=== PATIENT | male | born 1980 | race Two or more races ===

== ENCOUNTER 2024-01-24 18:32 | Inpatient (IN) | payer OTHER ==
[~2024-01-24] VITALS: Ht 167.6 cm; Wt 72.7 kg
[2024-01-24 20:19] LABS: BASOPHILS % (AUTO) 0.4 % (0.0-2.0); EOSINOPHILS % (AUTO) 1.3 % (1.0-6.0); HEMATOCRIT 40.6 % (41-53); HEMOGLOBIN 13.4 g/dL (13.5-17.5); LYMPHOCYTES # (AUTO) 1.4 K/uL (1.0-4.8); MEAN CORPUSCULAR HEMOGLOBIN 28.5 pg (26.0-34.0); MEAN CORPUSCULAR HGB CONC 33.1 G/dL (31.0-37.0); MEAN CORPUSCULAR VOLUME 86 fL (80-100); MONOCYTES # (AUTO) 0.8 K/uL (0.1-1.0); MONOCYTES % (AUTO) 8.3 % (2.0-9.0); NEUTROPHILS # (AUTO) 7.2 K/uL (1.8-7.7); PLATELET COUNT (AUTO) 231 K/uL (150-450); RED BLOOD CELL COUNT(AUTO) 4.71 MIL/uL (4.50-5.90); RED CELL DISTRIBUTION WIDTH 13.6 % (11.5-14.5); WHITE BLOOD COUNT (AUTO) 9.6 K/uL (4.5-11.0)
[2024-01-24] MEDS: PIPERACILLIN/TAZO 3.375 GM/D5W 50 ML IV ONE (20:26)
[2024-01-24 20:28] LABS: ANION GAP 10 mmol/L (8-16); CALCIUM, TOTAL 8.7 mg/dL (8.8-10.5); CARBON DIOXIDE 27 mmol/L (22-29); CHLORIDE 103 mmol/L (98-107); CREATININE 0.74 mg/dL (0.60-1.30); GLOMERULAR FILTR. RATE CALC > 60 mL/min (>60); GLUCOSE,RANDOM 102 mg/dL (70-110); POTASSIUM 4.1 mmol/L (3.5-5.1); SODIUM SERUM 140 mmol/L (136-145); UREA NITROGEN, BLOOD 8 mg/dL (7-18)
[2024-01-24] MEDS: VANCOMYCIN 1GM/WATER(PEG/NADA) 200 ML IV ONE (20:29)
[2024-01-24] MEDS: 0.9% SODIUM CHLORIDE 10 ML SYRINGE IVP PRN (20:29)
[2024-01-24 20:33] LABS: ALANINE AMINOTRANSFERASE 57 U/L (12-78); ALBUMIN 3.1 g/dL (3.4-5.0); ALKALINE PHOSPHATASE 98 U/L (46-116); ASPARTATE AMINOTRANSFERASE 34 U/L (15-37); BILIRUBIN,TOTAL 0.3 mg/dL (0.1-1.0); TOTAL PROTEIN, SERUM 7.5 g/dL (6.4-8.2)
[2024-01-24 20:36] LABS: LACTIC ACID 1.2 mmol/L (0.4-2.0)
[2024-01-24] MEDS ORDERED: IOHEXOL 350 MG/ML 100 ML VIAL ONE (21:14)
[2024-01-24] MEDS ORDERED: SODIUM CHLORIDE 0.9% 100 ML ONE (21:14)
[2024-01-24] MEDS ORDERED: MAGNESIUM HYDROXIDE SUSPENSION 30 ML UDCUP PO PRN (21:15)
[2024-01-24] MEDS ORDERED: ZOLPIDEM TARTRATE 5 MG TABLET PO PRN (21:15)
[2024-01-24] MEDS ORDERED: ACETAMINOPHEN 325 MG TABLET PO PRN (21:15)
[2024-01-24] MEDS ORDERED: OxyCODONE HCL/ACETAMINOPHEN 5-325 MG TABLET PO PRN (21:15)
[2024-01-24 21:25] LABS: APPEARANCE,URINE CLEAR (CLEAR); BILIRUBIN,URINE NEGATIVE (NEGATIVE); COLOR,URINE COLORLESS (YELLOW); GLUCOSE, URINE (UA) NEGATIVE (NEGATIVE); KETONES,URINE NEGATIVE (NEGATIVE); LEUKOCYTE ESTERASE ,URINE NEGATIVE (NEGATIVE); NITRATE,URINE NEGATIVE (NEGATIVE); OCCULT BLOOD,URINE NEGATIVE (NEGATIVE); PROTEIN,URINE NEGATIVE (NEGATIVE); SPECIFIC GRAVITIY, URINE 1.014 (1.003-1.030); UROBILINOGEN,URINE <=1.0 mg/dL (<=1.0)
[2024-01-24] MEDS ORDERED: PIPERACILLIN/TAZO 3.375 GM/D5W 50 ML IV SCH (21:30)
[2024-01-24 22:50] VITALS: BP 132/86; PULSE 78; RESP 18; TEMP 98.4; O2SAT 98
[2024-01-25] MEDS: PIPERACILLIN/TAZO 3.375 GM/D5W 50 ML IV SCH (01:08)
[2024-01-25 05:00] VITALS: BP 129/68; PULSE 93; RESP 18; TEMP 98.6; O2SAT 97
[2024-01-25] MEDS ORDERED: LIDOCAINE/PF 2% 5 ML VIAL ONE (06:39)
[2024-01-25] MEDS ORDERED: ONDANSETRON HCL 4 MG/2 ML VIAL ONE (06:39)
[2024-01-25] MEDS ORDERED: SUGAMMADEX SODIUM 200 MG/2 ML VIAL IVP ONE (06:39)
[2024-01-25] MEDS ORDERED: DEXAMETHASONE SOD PHOS 4 MG/ML VIAL ONE (06:39)
[2024-01-25] MEDS ORDERED: FentaNYL CITRATE PF 100 MCG/2 ML VIAL ONE (06:39)
[2024-01-25] MEDS ORDERED: ROCURONIUM BROMIDE 10 MG/ML 5 ML VIAL ONE (06:39)
[2024-01-25] MEDS ORDERED: MIDAZOLAM HCL 2 MG/2 ML VIAL ONE (06:39)
[2024-01-25] MEDS ORDERED: PROPOFOL 1% 20 ML VIAL IVP ONE (06:39)
[2024-01-25] MEDS: FAMOTIDINE 20 MG TABLET PO SCH (08:14)
[2024-01-25] MEDS: DOCUSATE SODIUM 100 MG CAPSULE PO SCH (08:14)
[2024-01-25 08:18] VITALS: BP 111/60; PULSE 84; RESP 18; TEMP 98.5; O2SAT 97
[2024-01-25] MEDS: VANCOMYCIN 1GM/WATER(PEG/NADA) 200 ML IV SCH (08:52)
[2024-01-25] MEDS ORDERED: MEPERIDINE-PF 25 MG/ML VIAL IVP PRN (18:15)
[2024-01-25] MEDS ORDERED: FentaNYL CITRATE PF 100 MCG/2 ML VIAL IVP PRN (18:15)
[2024-01-25] MEDS: BUPIVACAINE HCL/PF 0.5% 30 ML VIAL ID ONE (18:42)
[2024-01-25 19:45] VITALS: BP 134/76; PULSE 72; RESP 18; TEMP 97.6; O2SAT 98
[2024-01-25] MEDS: OXYGEN THERAPY IH SCH (20:09)
[2024-01-26 05:30] VITALS: BP 118/74; PULSE 61; RESP 20; TEMP 97.5; O2SAT 99
[2024-01-26 07:10] LABS: BASOPHILS % (AUTO) 0.2 % (0.0-2.0); EOSINOPHILS % (AUTO) 0 % (1.0-6.0); HEMATOCRIT 41.1 % (41-53); HEMOGLOBIN 13.8 g/dL (13.5-17.5); LYMPHOCYTES % (AUTO) 10.5 % (22.0-44.0); MEAN CORPUSCULAR HEMOGLOBIN 28.7 pg (26.0-34.0); MEAN CORPUSCULAR HGB CONC 33.6 G/dL (31.0-37.0); MEAN CORPUSCULAR VOLUME 86 fL (80-100); MONOCYTES # (AUTO) 0.2 K/uL (0.1-1.0); MONOCYTES % (AUTO) 2.4 % (2.0-9.0); NEUTROPHILS # (AUTO) 8.2 K/uL (1.8-7.7); PLATELET COUNT (AUTO) 282 K/uL (150-450); RED BLOOD CELL COUNT(AUTO) 4.81 MIL/uL (4.50-5.90); RED CELL DISTRIBUTION WIDTH 13.7 % (11.5-14.5); WHITE BLOOD COUNT (AUTO) 9.4 K/uL (4.5-11.0)
[2024-01-26 07:21] LABS: NEUTROPHILS % (AUTO) 86.9 % (40.0-70.0)
[2024-01-26 07:30] LABS: ANION GAP 9 mmol/L (8-16); CALCIUM, TOTAL 8.9 mg/dL (8.8-10.5); CARBON DIOXIDE 28 mmol/L (22-29); CHLORIDE 102 mmol/L (98-107); GLOMERULAR FILTR. RATE CALC > 60 mL/min (>60); GLUCOSE,RANDOM 120 mg/dL (70-110); POTASSIUM 4.1 mmol/L (3.5-5.1); SODIUM SERUM 139 mmol/L (136-145); UREA NITROGEN, BLOOD 9 mg/dL (7-18); VANCOMYCIN,RANDOM 14.9 mcg/mL (25.0-50.0)
[2024-01-26 08:53] VITALS: BP 121/64; PULSE 70; RESP 19; TEMP 98.2; O2SAT 98
[2024-01-26 19:30] VITALS: BP 111/74; PULSE 80; RESP 20; TEMP 98.3; O2SAT 98
[2024-01-27 05:05] VITALS: BP 108/66; PULSE 64; RESP 18; TEMP 98; O2SAT 96
[2024-01-27 07:37] VITALS: BP 117/68; PULSE 57; RESP 18; TEMP 97.5; O2SAT 98
[2024-01-27 07:48] LABS: ANION GAP 8 mmol/L (8-16); CALCIUM, TOTAL 8.3 mg/dL (8.8-10.5); CARBON DIOXIDE 29 mmol/L (22-29); CHLORIDE 105 mmol/L (98-107); CREATININE 0.79 mg/dL (0.60-1.30); GLOMERULAR FILTR. RATE CALC > 60 mL/min (>60); GLUCOSE,RANDOM 95 mg/dL (70-110); POTASSIUM 3.8 mmol/L (3.5-5.1); SODIUM SERUM 142 mmol/L (136-145); UREA NITROGEN, BLOOD 11 mg/dL (7-18)
[2024-01-27 19:34] VITALS: BP 123/71; PULSE 63; RESP 20; TEMP 98.1; O2SAT 100
[2024-01-28 04:56] VITALS: BP 101/52; PULSE 58; RESP 18; TEMP 98.4; O2SAT 96
[2024-01-28 07:34] LABS: ANION GAP 7 mmol/L (8-16); CALCIUM, TOTAL 8.6 mg/dL (8.8-10.5); CARBON DIOXIDE 29 mmol/L (22-29); CHLORIDE 105 mmol/L (98-107); GLOMERULAR FILTR. RATE CALC > 60 mL/min (>60); GLUCOSE,RANDOM 90 mg/dL (70-110); POTASSIUM 3.9 mmol/L (3.5-5.1); SODIUM SERUM 141 mmol/L (136-145); UREA NITROGEN, BLOOD 12 mg/dL (7-18)
[2024-01-28 07:52] LABS: VANCOMYCIN,RANDOM 16.5 mcg/mL (25.0-50.0)
[2024-01-28 09:00] VITALS: BP 112/56; PULSE 58; RESP 20; TEMP 98; O2SAT 98
[2024-01-28 20:00] VITALS: BP 128/69; PULSE 71; RESP 20; TEMP 97.7; O2SAT 99
[2024-01-29 05:20] VITALS: BP 116/62; PULSE 68; RESP 18; TEMP 97.7; O2SAT 97
[2024-01-29 07:46] LABS: ANION GAP 8 mmol/L (8-16); CALCIUM, TOTAL 8.8 mg/dL (8.8-10.5); CARBON DIOXIDE 28 mmol/L (22-29); CHLORIDE 104 mmol/L (98-107); CREATININE 0.81 mg/dL (0.60-1.30); GLOMERULAR FILTR. RATE CALC > 60 mL/min (>60); GLUCOSE,RANDOM 86 mg/dL (70-110); POTASSIUM 3.7 mmol/L (3.5-5.1); SODIUM SERUM 140 mmol/L (136-145); UREA NITROGEN, BLOOD 12 mg/dL (7-18)
[2024-01-29 08:55] VITALS: BP 126/83; PULSE 64; RESP 18; TEMP 97.9; O2SAT 99
[2024-01-29 10:46] LABS: BASOPHILS % (AUTO) 0.4 % (0.0-2.0); EOSINOPHILS % (AUTO) 5.6 % (1.0-6.0); HEMATOCRIT 41.4 % (41-53); HEMOGLOBIN 13.8 g/dL (13.5-17.5); LYMPHOCYTES # (AUTO) 2.7 K/uL (1.0-4.8); LYMPHOCYTES % (AUTO) 34.6 % (22.0-44.0); MEAN CORPUSCULAR HEMOGLOBIN 28.4 pg (26.0-34.0); MEAN CORPUSCULAR HGB CONC 33.3 G/dL (31.0-37.0); MEAN CORPUSCULAR VOLUME 85 fL (80-100); MONOCYTES # (AUTO) 0.7 K/uL (0.1-1.0); MONOCYTES % (AUTO) 8.9 % (2.0-9.0); NEUTROPHILS % (AUTO) 50.5 % (40.0-70.0); PLATELET COUNT (AUTO) 316 K/uL (150-450); RED BLOOD CELL COUNT(AUTO) 4.87 MIL/uL (4.50-5.90); RED CELL DISTRIBUTION WIDTH 13.6 % (11.5-14.5); WHITE BLOOD COUNT (AUTO) 7.9 K/uL (4.5-11.0)
[2024-01-29] MEDS ORDERED: SULF-261 PO (11:18)
[2024-01-29] MEDS ORDERED: DOXY-354 PO (11:22)
== END 2024-01-29 16:54 | DRG 571 ==
LOC: EMS 18:32 → EDH 21:13 → 6S 22:35
PROVIDERS: ADMIT Internal Medicine; ATTEND Internal Medicine
PROC: 0JB90ZZ Excision of Buttock Subcutaneous Tissue and Fascia, Open Approach (ICD-10-PCS; principal; 2024-01-25 18:00)
DX: L03.317 Cellulitis of buttock (principal); L02.416 Cutaneous abscess of left lower limb; L03.116 Cellulitis of left lower limb; B95.61 Methicillin susceptible Staphylococcus aureus infection as the cause of diseases classified elsewhere; L02.31 Cutaneous abscess of buttock
CPT/HCPCS: 73701; 80048; 80053; 80202; 81003; 83605; 84145; 85025; 87040; 87070; 87186; 87205; 93005; 99285; J1100; J2250; J2405; J2543; J2704; J3010; J3490; J7050